=== PATIENT | male | born 1975 | race Caucasian/White ===

== ENCOUNTER → 2020-07-22 | Outpatient (CLI) | payer BC ==
--- NOTE | 2020-07-22 16:08 | Diagnostic Imaging Report ---
EXAM: Left foot at 3:23 PM INDICATION: Heel pain 3 views were obtained. COMPARISON: There are no prior studies available for comparison. FINDINGS: There is no fracture, dislocation or acute bony abnormality evident. There do not appear to be any significant degenerative changes involving the foot but there is a minute calcaneal spur. The soft tissues are unremarkable. IMPRESSION: 1. There is no evidence for an acute bony abnormality. 2. There is a minute calcaneal spur. Dictated by: Dictated on workstation # [id number]
== END ==
LOC: RAD FS 15:18
PROVIDERS: ATTEND Nurse Practitioner
DX: M79.673 Pain in unspecified foot (principal)

== ENCOUNTER → 2021-12-15 | Outpatient (CLI) | payer BC ==
--- NOTE | 2021-12-15 12:18 | Diagnostic Imaging Report ---
Indication: Hit in the throat with a baseball. Time of Exam: 11:52 AM Multiple views cervical spine were obtained. Curvature and alignment is normal. There is some degenerative disc disease C5-C6 and C6-C7 levels with disc space narrowing noted. The prevertebral tissues are normal. No fractures are seen. Odontoid is intact. IMPRESSION: Lower cervical spondylosis. No acute bony abnormality is detected. Dictated by: Dictated on workstation # [id number]
== END ==
LOC: RAD FS 11:32
PROVIDERS: ATTEND Nurse Practitioner Family
DX: M47.812 Spondylosis without myelopathy or radiculopathy, cervical region (principal); H66.001 Acute suppurative otitis media without spontaneous rupture of ear drum, right ear
CPT/HCPCS: 72040

== ENCOUNTER 2022-06-23 19:14 | Emergency (ER) | payer BC ==
[~2022-06-23] VITALS: Ht 187.9 cm; Wt 111.2 kg
[2022-06-23 19:34] LABS: BASOPHILS # (AUTO) 0.1 10^3/uL (0.0-0.1); BASOPHILS % (AUTO) 0 % (0-10); EOSINOPHILS % (AUTO) 0 % (0-10); HEMATOCRIT 45 % (40-54); HEMOGLOBIN 15.6 g/dL (13.3-17.7); LYMPHOCYTES # (AUTO) 1.6 10^3/uL (1.0-4.0); LYMPHOCYTES % (AUTO) 13 % (12-44); MEAN CORPUSCULAR HEMOGLOBIN 30 pg (25-34); MEAN CORPUSCULAR HGB CONC 35 g/dL (32-36); MEAN CORPUSCULAR VOLUME 85 fL (80-99); MONOCYTES # (AUTO) 0.9 10^3/uL (0.0-1.0); MONOCYTES % (AUTO) 8 % (0-12); NEUTROPHILS # (AUTO) 9.6 10^3/uL (1.8-7.8); NEUTROPHILS % (AUTO) 78 % (42-75); PLATELET COUNT 216 10^3/uL (130-400); WHITE BLOOD COUNT 12.2 10^3/uL (4.3-11.0)
[2022-06-23 19:35] LABS: BILIRUBIN,URINE NEGATIVE (NEGATIVE); CLARITY,URINE CLEAR; COLOR,URINE YELLOW; GLUCOSE, URINE (UA) NEGATIVE (NEGATIVE); KETONES,URINE NEGATIVE (NEGATIVE); LEUKOCYTE ESTERASE ,URINE NEGATIVE (NEGATIVE); NITRITE,URINE NEGATIVE (NEGATIVE); PH,URINE 6.5 (5-9); PROTEIN,URINE NEGATIVE (NEGATIVE)
[2022-06-23 19:42] LABS: BACTERIA,URINE NEGATIVE /HPF; RBC,URINE RARE /HPF; WBC,URINE RARE /HPF
[2022-06-23] MEDS ORDERED: PANTOPRAZOLE 40 MG (PROTONIX) VIAL IV STA (19:44)
[2022-06-23] MEDS ORDERED: NS IV 1000 ML 1,000 ML IV STA (19:44)
[2022-06-23] MEDS ORDERED: ONDANSETRON 4 MG/2 ML (SDV) Z0FRAN IVP STA (19:44)
[2022-06-23] MEDS ORDERED: KETOROLAC 30 MG/ML VIAL IVP STA (19:44)
--- NOTE | 2022-06-23 19:44 | ED Fever ---
History of Present Illness General Chief Complaint: General Problems/Pain Stated Complaint: FEVER,ABD PAIN Source: patient, family History of Present Illness Date Seen by Provider: Jun 23, 2022 Time Seen by Provider: 19:18 Initial Comments 47-year-old male presenting with complaints of sudden onset fever and chills today as well as cough. He feels like he has a migraine headache. He has had nausea all day but no vomiting. He has pain in the periumbilical, epigastric a nd right lower quadrant. He feels like the pain is radiating to his right kidney. It is a stabbing pain that feels like an ice pick being jabbed into his belly. He states that he has pain in the right kidney area when he takes a deep breath. He denies any pain with urination, change in his bowels, blood in his urine, blood in his stools, productive cough. He has had some sinus drainage and a cough. He had gone to urgent care when he found that he had a temperature of 102.6 at home after chilling all day at school. When he got to urgent care they did a swab to check for COVID, influenza, strep and reports that those were all negative. His urine that was provided just prior to coming to the emergency department he was told did not show infection. He denies any abdominal surgeries in the past. Timing/Duration: this afternoon, getting worse Fever Quality: greater than 102 F Fever Therapy DIRECTOR DATA ANALYTICS: Tylenol Associated Symptoms: abdominal pain; No chest pain, No confusion; cough, diaphoresis, headache, muscle aches, nausea/vomiting (Nausea but no vomiting); No rash, No shortness of breath, No sore throat, No stiff neck, No syncope, No weakness Allergies and Home Medications Allergies Coded Allergies: No Known Drug Allergies (Unverified , 06/23/22) Patient Home Medication List Home Medication List Reviewed: Yes Ondansetron (Ondansetron Odt) 4 Mg Tab.rapdis, 4 MG PO Q6H PRN for NAUSEA/VOMITING Prescribed by: JEREMIAH VALENCIA on 06/23/222048 Review of Systems Review of Systems Constitutional: chills, fever, malaise EENTM: nose congestion Respiratory: cough; No short of breath Cardiovascular: No chest pain Gastrointestinal: see HPI; No constipation, No diarrhea; nausea; No vomiting Genitourinary: No dysuria Musculoskeletal: muscle pain Skin: No rash Psychiatric/Neurological: Headache Hematologic/Lymphatic: Denies Blood Clots Physical Exam Vital Signs - First Documented 06/23/22 19:41 Temp 37.6 Pulse 115 Resp 20 B/P (MAP) 121/81 (94) Pulse Ox 97 O2 Delivery Room Air Capillary Refill : Height: '" Weight: lbs. oz. 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 II-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 nml as tested, no motor/sensory deficits, alert, oriented x 3 Skin: normal color, warm/dry; No rash Focused Exam Lactate Level 06/23/22 20:05: Lactic Acid Level 0.77 Lactic Acid Level Laboratory Tests Test 06/23/22 20:05 Lactic Acid Level 0.77 MMOL/L (0.50-2.00) Progress/Results/Core Measures Suspected Sepsis SIRS Temperature: Pulse: Respiratory Rate: Laboratory Tests 06/23/22 19:30: White Blood Count 12.2H Blood Pressure / Mean: 06/23/22 20:05: Lactic Acid Level 0.77 Laboratory Tests 06/23/22 19:30: Creatinine 1.12, Platelet Count 216, Total Bilirubin 0.8 Results/Orders Lab Results Laboratory Tests Test 06/23/22 19:30 06/23/22 20:05 Range/Units White Blood Count 12.2 H 4.3-11.0 10^3/uL Red Blood Count 5.26 4.30-5.52 10^6/uL Hemoglobin 15.6 13.3-17.7 g/dL Hematocrit 45 40-54 % Mean Corpuscular Volume 85 80-99 fL Mean Corpuscular Hemoglobin 30 25-34 pg Mean Corpuscular Hemoglobin Concent 35 32-36 g/dL Red Cell Distribution Width 12.6 10.0-14.5 % Platelet Count 216 130-400 10^3/uL Mean Platelet Volume 10.0 9.0-12.2 fL Immature Granulocyte % (Auto) 0 % Neutrophils (%) (Auto) 78 H 42-75 % Lymphocytes (%) (Auto) 13 12-44 % Monocytes (%) (Auto) 8 0-12 % Eosinophils (%) (Auto) 0 0-10 % Basophils (%) (Auto) 0 0-10 % Neutrophils # (Auto) 9.6 H 1.8-7.8 10^3/uL Lymphocytes # (Auto) 1.6 1.0-4.0 10^3/uL Monocytes # (Auto) 0.9 0.0-1.0 10^3/uL Eosinophils # (Auto) 0.0 0.0-0.3 10^3/uL Basophils # (Auto) 0.1 0.0-0.1 10^3/uL Immature Granulocyte # (Auto) 0.0 0.0-0.1 10^3/uL Urine Color YELLOW Urine Clarity CLEAR Urine pH 6.5 5-9 Urine Specific [place] 1.010 L 1.016-1.022 Urine Protein NEGATIVE NEGATIVE Urine Glucose (UA) NEGATIVE NEGATIVE Urine Ketones NEGATIVE NEGATIVE Urine Nitrite NEGATIVE NEGATIVE Urine Bilirubin NEGATIVE NEGATIVE Urine Urobilinogen 0.2 < = 1.0 MG/DL Urine Leukocyte Esterase NEGATIVE NEGATIVE Urine RBC (Auto) TRACE-I H NEGATIVE Urine RBC RARE /HPF Urine WBC RARE /HPF Urine Squamous Epithelial Cells NONE /HPF Urine Crystals NONE /LPF Urine Bacteria NEGATIVE /HPF Urine Casts NONE /LPF Urine Mucus SMALL H /LPF Urine Culture Indicated NO Sodium Level 141 135-145 MMOL/L Potassium Level 3.5 L 3.6-5.0 MMOL/L Chloride Level 104 98-107 MMOL/L Carbon Dioxide Level 22 21-32 MMOL/L Anion Gap 15 H 5-14 MMOL/L Blood Urea Nitrogen 8 7-18 MG/DL Creatinine 1.12 0.60-1.30 MG/DL Estimat Glomerular Filtration Rate 83 BUN/Creatinine Ratio 7 Glucose Level 104 70-105 MG/DL Calcium Level 9.3 8.5-10.1 MG/DL Corrected Calcium 9.1 8.5-10.1 MG/DL Total Bilirubin 0.8 0.1-1.0 MG/DL Aspartate Amino Transf (AST/SGOT) 24 5-34 U/L Alanine Aminotransferase (ALT/SGPT) 28 0-55 U/L Alkaline Phosphatase 92 40-136 U/L Total Protein 7.1 6.4-8.2 GM/DL Albumin 4.2 3.2-4.5 GM/DL Lipase 23 8-78 U/L Lactic Acid Level 0.77 0.50-2.00 MMOL/L My Orders Orders - JEREMIAH VALENCIA MD Comprehensive Metabolic Panel (06/23/22 19:17) Lipase (06/23/22 19:17) Ua Culture If Indicated (06/23/22 19:17) Ed Iv/Invasive Line Start (06/23/22 19:17) Cbc With Automated Diff (06/23/22 19:17) Blood Culture (06/23/22 19:39) Lactic Acid Analyzer (06/23/22 19:39) Chest 1 View Ap/Pa Only (06/23/22 19:39) Ct Abdomen/Pelvis Wo (06/23/22 19:39) Ns Iv 1000 Ml (Sodium Chloride 0.9%) (06/23/22 19:44) Ketorolac Injection (Toradol Injection) (06/23/22 19:44) Ondansetron Injection (Zofran Injectio (06/23/22 19:44) Pantoprazole Injection (Protonix Injecti (06/23/22 19:44) Rx-Ondansetron Po (Rx-Zofran Po) (06/23/22 21:00) Vital Signs/I&O 06/23/22 19:41 Temp 37.6 Pulse 115 Resp 20 B/P (MAP) 121/81 (94) Pulse Ox 97 O2 Delivery Room Air Capillary Refill : Progress Note #1: Progress Note Obtain basic labs and urinalysis. Ordered chest x-ray since he has had a cough and a fever. CT scan of the abdomen and pelvis without IV contrast to evaluate for possible kidney stone versus colitis versus appendicitis versus ryan cystitis versus diverticulitis. Add on blood cultures and lactic acid to look for signs of sepsis since he had fever and cough. For his headache and tachycardia obtain IV access to give IV fluids normal saline 1 L IV fluid bolus for hydration. For pain give Toradol 30 mg IV, Zofran 4 mg IV for nausea, Protonix 40 mg IV for possible gastritis, Progress Note #2: Progress Note CBC shows mild elevation white blood cell count to 12.2. He had a mild left shift with increased neutrophils. His chemistry panel does not show acute significant abnormality. Urinalysis was not showing infection but he had trace amount of blood and mucus. Awaiting CT scan and radiology reading. On my review of his 1 view chest x-ray I did not see any acute infiltrate or effusion. He appeared to have hyperexpansion of his lungs. Progress Note #3: Time: 20:[address] scan of the abdomen pelvis does not demonstrate any acute process to account for his fever and chills. His chest x-ray was also clear without acute infiltrate or effusion. Will review findings with patient and family. Also urgent care had told him that his COVID, influenza, strep were all negative it is possible that he could still have 1 of these especially with his symptoms to started today. He could also another virus that we have not tested for. Will encourage symptomatic treatment and push fluids and hydration as well as rest. Follow-up with primary care for continued concerns. Return for worsening symptoms or if not improving with symptomatic care. Lactic acid negative at 0.77. Encourage symptomatic treatment at home and home from school until fever and symptom free for 24 hours without having to take medicine. Diagnostic Imaging Diagonstic Imaging: Xray Plain Films/CT/US/NM/MRI: chest Comments On my independent review and interpretation of his 1 view chest x-ray he had no acute infiltrate, effusion, mass, cardiomegaly. He does have hyperexpansion of his lungs. [facility], [place] NAME: MENDEZ STANLEY [facility] REC#: [id number] PT STATUS: REG ER : 1975 PHYSICIAN: JEREMIAH VALENCIA MD ADMIT DATE: 06/23/22/ER FS Draft Date of Exam:06/23/22 CHEST 1 VIEW AP/PA ONLY INDICATION: Cough and fever. EXAMINATION: AP view of the chest was obtained. COMPARISON: No previous study is available for comparison at this time. FINDINGS: Heart size and pulmonary vasculature are within normal limits, and the lungs are clear, bilaterally. IMPRESSION: Unremarkable chest. Dictated on workstation # [id number] Dict: 06/23/222013 Trans: 06/23/222019 [facility] [id number] Interpreted by: MAU OQUENDO MD Electronically signed by: Reviewed: Reviewed by Me Diagonstic Imaging: CT Plain Films/CT/US/NM/MRI: abdomen, pelvis Comments NAME: MENDEZ STANLEY [facility] REC#: [id number] PT STATUS: REG ER : 1975 PHYSICIAN: JEREMIAH VALECNIA MD ADMIT DATE: 06/23/22/ER FS Draft Date of Exam:06/23/22 CT ABDOMEN/PELVIS WO PROCEDURE: CT abdomen and pelvis without contrast. TECHNIQUE: Multiple contiguous axial images were obtained through the abdomen and pelvis without the use of intravenous contrast. Auto Exposure Controls were utilized during the CT exam to meet ALARA standards for radiation dose reduction. INDICATION: Periumbilical and right lower quadrant abdominal pain with fever. FINDINGS: Noncontrast CT imaging of the liver and spleen is unremarkable. There is no evidence of gallbladder, pancreatic, adrenal gland or renal abnormality. The appendix has a normal appearance and there is no evidence of free fluid within the abdomen or pelvis. No organized fluid collection or focal inflammation is seen. Unopacified bladder is unremarkable. There is mild concavity of the superior endplate of L1. This could be chronic or related to Schmorl's node. There are prostatic calcifications. IMPRESSION: No acute abnormality is identified. Dictated on workstation # [id number] Dict: 06/23/222010 Trans: 06/23/222019 [facility] [id number] Interpreted by: MAU OQUENDO MD Electronically signed by: Reviewed: Reviewed by Me Departure Impression Primary Impression: Fever and chills Additional Impressions: Periumbilical abdominal pain Nausea Generalized headache Disposition: 01 HOME, SELF-CARE Condition: Stable Departure-Patient Inst. Decision time for Depature: 20:49 Referrals: JESSENIA BEATTY MD (PCP/Family) Primary Care Physician Patient Instructions: Nausea and Vomiting, Adult ED, Fever, Adult ED, Headache, Adult ED, Abdominal Pain, Adult ED Add. Discharge Instructions: Stay well-hydrated and drink plenty of fluid. Drink plenty of rest to help your body heal. Use the dissolving nausea medicine if needed to help settle your stomach. Check back through the clinic for continued concerns. Return to the emergency department if having new or worsening symptoms. All discharge instructions reviewed with patient and/or family. Voiced understanding. Scripts Ondansetron (Ondansetron Odt) 4 Mg Tab.rapdis 4 MG PO Q6H PRN for NAUSEA/VOMITING for 3 Days, #12 TAB 0 Refills Prov: JEREMIAH VALENCIA MD 06/23/22 Work/School Note: Work Release Form Date Seen in the Emergency Department: Jun 23, 2022 Return to Work: Jun 28, 2022 Restrictions: Return-No Fever (24hrs), Return-No Vomiting(24hrs) Other Restrictions Listed Below: Home until fever and symptom free 24 hours without medicine JEREMIAH VALENCIA MD Jun 23, 2022 19:44
[2022-06-23 20:04] LABS: ALBUMIN 4.2 GM/DL (3.2-4.5); BILIRUBIN,TOTAL 0.8 MG/DL (0.1-1.0); CALCIUM 9.3 MG/DL (8.5-10.1); CREATININE SERUM 1.12 MG/DL (0.60-1.30); POTASSIUM 3.5 MMOL/L (3.6-5.0); TOTAL PROTEIN 7.1 GM/DL (6.4-8.2)
--- NOTE | 2022-06-23 20:21 | Diagnostic Imaging Report ---
INDICATION: Cough and fever. EXAMINATION: AP view of the chest was obtained. COMPARISON: No previous study is available for comparison at this time. FINDINGS: Heart size and pulmonary vasculature are within normal limits, and the lungs are clear, bilaterally. IMPRESSION: Unremarkable chest. Dictated by: Dictated on workstation # [id number]
--- NOTE | 2022-06-23 20:21 | Diagnostic Imaging Report ---
PROCEDURE: CT abdomen and pelvis without contrast. TECHNIQUE: Multiple contiguous axial images were obtained through the abdomen and pelvis without the use of intravenous contrast. Auto Exposure Controls were utilized during the CT exam to meet ALARA standards for radiation dose reduction. INDICATION: Periumbilical and right lower quadrant abdominal pain with fever. FINDINGS: Noncontrast CT imaging of the liver and spleen is unremarkable. There is no evidence of gallbladder, pancreatic, adrenal gland or renal abnormality. The appendix has a normal appearance and there is no evidence of free fluid within the abdomen or pelvis. No organized fluid collection or focal inflammation is seen. Unopacified bladder is unremarkable. There is mild concavity of the superior endplate of L1. This could be chronic or related to Schmorl's node. There are prostatic calcifications. IMPRESSION: No acute abnormality is identified. Dictated by: Dictated on workstation # [id number]
[2022-06-23] MEDS ORDERED: ONDA4TAB11 PO (20:49)
[2022-06-23 20:56] VITALS: BP 116/84
[2022-06-23] MEDS ORDERED: RX-ONDANSETRON 4 MG ODT (ZOFRAN) PPK #4 PO PRN (21:00)
== END 2022-06-23 20:58 | disposition home or self-care (01) ==
LOC: EDUNIT# 19:14 → ER FS 19:16
DX: R50.9 Fever, unspecified (principal); R10.33 Periumbilical pain; R11.0 Nausea; R51.9 Headache, unspecified; R05.9 Cough, unspecified; D72.829 Elevated white blood cell count, unspecified
CPT/HCPCS: 36415; 71045; 74176; 80053; 81000; 83605; 83690; 85025; 87040

== ENCOUNTER 2023-06-22 05:40 | Outpatient (CLI) | payer BC ==
[~2023-06-22] VITALS: Ht 185.4 cm; Wt 104.8 kg
[~2023-06-22 05:40] MED LIST: ONDA4TAB11 PO
[2023-06-27] MEDS ORDERED: PROP10TA8 PO (13:37)
[2023-06-27] MEDS ORDERED: LTH450TCR PO (13:37)
[2023-06-27] MEDS ORDERED: ATOR40TA70 PO (13:37)
[2023-06-27] MEDS ORDERED: ATOM40CA6 PO (13:37)
[2023-06-27] MEDS ORDERED: BREX1TAB PO (13:37)
[2023-06-27] MEDS ORDERED: VORT20TA PO (13:37)
[2023-06-27] MEDS ORDERED: GABA300S3 PO (13:37)
[2023-06-27] MEDS ORDERED: BREX2TAB PO (13:37)
[2023-06-27] MEDS ORDERED: MELO15TA39 PO (13:37)
== END 2023-06-27 13:49 | disposition home or self-care (01) ==
LOC: PREOP 05:40
PROVIDERS: ATTEND Surgery
DX: Z01.818 Encounter for other preprocedural examination (principal)

== ENCOUNTER 2023-07-05 08:13 | Day surgery (SDC) | payer BC ==
[~2023-07-05] VITALS: Ht 185.4 cm; Wt 104.8 kg
[~2023-07-05 08:13] MED LIST changes: +ATOM40CA6 PO; +ATOR40TA70 PO; +BREX1TAB PO; +BREX2TAB PO; +GABA300S3 PO; +LTH450TCR PO; +MELO15TA39 PO; +PROP10TA8 PO; +VORT20TA PO
[2023-07-05] MEDS ORDERED: LACTATED RINGERS 1,000 ML 1,000 ML IV STA (08:15)
[2023-07-05 08:35] VITALS: BP 106/82
--- NOTE | 2023-07-05 09:36 | Progress Note-Pre Operative ---
Pre-Operative Progress Note Date H&P Reviewed: Jul 05, 2023 Time H&P Reviewed: 09:35 History & Physical: H&P Reviewed, Patient Examed, No changes noted Pre-Operative Diagnosis: Chronic diarrhea, RLQ pain GENE SAENZ DO Jul 05, 2023 09:36
[2023-07-05 10:40] VITALS: BP 90/62
--- NOTE | 2023-07-05 10:41 | Progress Note-Post Operative ---
Post-Operative Progess Note Surgeon (s)/Returner (s) Surgeon GENE SAENZ DO Returner: n/a Pre-Operative Diagnosis Chronic diarrhea, RLQ pain Post-Operative Diagnosis Terminal ileum mucosal changes, diverticulosis, colon polyps Procedure & Operative Findings Date of Procedure 07/05/23 Procedure Performed/Findings colonoscopy with cold biopsies ileum, random cold colon biopsies, hot bx polypectomy x2 Anesthesia Type per INTENSIVIST Estimated Blood Loss Estimated blood loss (mL): none Specimens/Packing Specimens Removed ileum, random colon, Cecum x1, rectum x1 GENE SAENZ DO Jul 05, 2023 10:41
--- NOTE | 2023-07-05 10:42 | Discharge Inst-Simple/Standard ---
Discharge Inst-Standard Patient Instructions/Follow Up Plan of Care/Instructions/FU: 2 weeks tico Activity as Tolerated: Yes Discharge Diet: Regular Diet (high fiber) GENE SAENZ DO Jul 05, 2023 10:42
[2023-07-05 10:45] VITALS: BP 108/67
[2023-07-05 10:55] VITALS: BP 107/70
[2023-07-05 11:35] VITALS: BP 107/70
--- NOTE | 2023-07-05 13:10 | Anesthesia-General Post-Op ---
MAC Patient Condition Mental Status/LOC: Same as Preop Cardiovascular: Satisfactory Nausea/Vomiting: Absent Respiratory: Satisfactory Pain: Controlled Complications: Absent Post Op Complications Complications None Follow Up Care/Instructions Patient Instructions None needed. Anesthesiology Discharge Order Discharge Order Patient is doing well, no complaints, stable vital signs, no apparent adverse anesthesia problems. No complications reported per nursing. ILAN ROSARIO CRNA Jul 05, 2023 13:10
--- NOTE | 2023-07-05 18:26 | OPERATIVE REPORT ---
DATE OF SERVICE: 07/05/2023 PREOPERATIVE DIAGNOSES: Chronic diarrhea, right lower quadrant abdominal pain. POSTOPERATIVE DIAGNOSES: Terminal ileum mucosal changes, colon polyps, diverticulosis. PROCEDURE: Colonoscopy with cold biopsies of the ileum, random cold biopsies of the colon, hot biopsy polypectomy x2. 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 ESTIMATED BLOOD LOSS: None. COMPLICATIONS: None. INDICATIONS: The patient is a 48-year-old male who has been having some chronic diarrhea and also right lower quadrant abdominal pain. He understands risks and benefits of procedure and wishes to proceed. Consent was signed in chart. DESCRIPTION OF PROCEDURE: The patient was taken to endoscopy suite, placed in left lateral recumbent position. Timeout was performed. Digital rectal exam was performed. No palpable polyps, masses or masses or ulcerations. Scope was inserted in the rectum, advanced all the way to the cecum with minimal difficulty. The ileum was intubated, had mucosal changes present. Cold biopsies were obtained. Scope was retracted back into the colon where a small polyp was present in the cecum, which hot biopsy polypectomy was performed. Scope was then continuously retracted back. No palpable polyps, masses or ulcerations within the ascending, transverse, descending and sigmoid colon. Minimal amount of diverticulosis was present. Once in the rectum, a small polyp was present, which hot biopsy polypectomy was performed. Scope was retroflexed, noting no other pathology. As the scope was being retracted, random cold biopsies were obtained. Scope was then slowly retracted back until completely removed. The patient tolerated the procedure well without complications, taken to recovery room in stable condition. RECOMMENDATIONS: The patient will need repeat colonoscopy in 5 years due to polyps. We would recommend high fiber diet due to diverticulosis. We will await biopsy results from the cold biopsies. The patient will follow up in the office in 2-3 weeks or so to go over all pathology and see how symptoms are doing. Job ID: [id number] DocumentID: [id number] Dictated Date: 07/05/2023 10:39:11 Pool Cleaner Date: 07/05/2023 18:25:00 Dictated By: GENE LOAIZA DO
== END 2023-07-05 11:42 | disposition home or self-care (01) ==
LOC: ENDO 08:13
PROVIDERS: ATTEND Surgery
DX: D12.0 Benign neoplasm of cecum (principal); D12.8 Benign neoplasm of rectum; K52.9 Noninfective gastroenteritis and colitis, unspecified; K57.30 Diverticulosis of large intestine without perforation or abscess without bleeding
CPT/HCPCS: 88305